=== PATIENT | female | born 1940 | race Caucasian/White ===

== ENCOUNTER → 2017-05-07 | Outpatient (REF) ==
[~2017-05-07] MED LIST: ADVAIR DISKUS1 DS1 IH; ASPI81CT10 PO; CELEBREX200 MG PO; CENTRUM SILVER1 TA1 PO; HCTZ 25MG25 MG PO; NITROSTAT0.4 MG SL; OXYBUTYNIN5 MG PO; PREVACID 30MG30 MG PO; PRINIVIL10 MG PO; SYNTHROID 0.10.15 MG PO
== END ==
LOC: ZLAB.WCH 18:15
DX: Z01.89 Encounter for other specified special examinations (principal)

== ENCOUNTER → 2018-01-18 | Outpatient (CLI) | payer MEDICARE, BC | LOC: COL.RAD 12:49 | DX: M79.671 Pain in right foot (principal) | CPT/HCPCS: J3301; Q9967 ==

== ENCOUNTER → 2018-05-13 | Outpatient (REF) | LOC: ZLAB.WCH 18:07 | DX: Z01.89 Encounter for other specified special examinations (principal) ==

== ENCOUNTER → 2018-08-05 | Outpatient (REF) | LOC: ZLAB.WCH 19:36 | DX: Z01.89 Encounter for other specified special examinations (principal) ==

== ENCOUNTER → 2018-08-16 | Outpatient (REF) ==
[2018-08-16 18:42] LABS: THYROID STIMULATING HORMONE < 0.015 uIU/mL (0.465-4.680)
== END ==
LOC: ZLAB.WCH 17:57
PROVIDERS: Nurse Practitioner Family
DX: Z01.89 Encounter for other specified special examinations (principal)

== ENCOUNTER → 2021-04-02 | Outpatient (REF) | LOC: COL.CARD 08:09 | DX: Z01.810 Encounter for preprocedural cardiovascular examination (principal) ==

== ENCOUNTER 2021-08-19 15:27 | Observation (INO) | payer MEDICARE, BC ==
[~2021-08-19 15:27] MED LIST changes: -PRINIVIL10 MG PO; +PRINIVIL5 MG PO
[2021-08-19] MEDS ORDERED: SYNTHROID0.125 MG/T PO (16:44)
[2021-08-19 16:45] VITALS: BP 177/97; PULSE 66
[2021-08-19] MEDS ORDERED: ULTRAM 50MG TAB50 MG PO (16:48)
[2021-08-19] MEDS ORDERED: VITAMINC500CH PO (16:52)
[2021-08-19] MEDS ORDERED: VITAMIN D31000 I1 PO (16:53)
[2021-08-19] MEDS ORDERED: VITAMIN E 400 U4001 PO (16:54)
[2021-08-19] MEDS ORDERED: HARD NAILS 2.51 CAP PO (16:55)
[2021-08-19] MEDS ORDERED: BIOTIN10000 MC1 PO (16:56)
[2021-08-19 18:35] VITALS: BP 186/66; PULSE 67; TEMP 97.7
[2021-08-19 20:00] VITALS: BP 125/59; PULSE 57; TEMP 98.4
[2021-08-20 00:09] VITALS: BP 122/60; PULSE 60; TEMP 98.5
[2021-08-20 03:35] VITALS: BP 112/47; PULSE 71; TEMP 98.2
[2021-08-20 06:47] LABS: BASO # 0.1 K/mm3 (0.0-0.2); BASO % 1.4 % (0.0-2.0); EOS # 0.2 K/mm3 (0.0-0.7); EOS % 4.1 % (0.0-4.0); GRAN # 3.2 K/mm3 (1.4-6.5); GRAN % 54.8 % (42.2-75.2); HEMATOCRIT 42.2 % (37.0-47.0); HEMOGLOBIN 13.7 g/dl (12.5-16.0); LYMPH # 1.8 K/mm3 (1.2-3.4); MEAN CELL VOLUME 100 fl (80.0-100.0); MEAN CORPUSCULAR HEMOGLOBIN 32 pg (27-31); MEAN CORPUSCULAR HGB CONC 33 g/dl (33.0-37.0); MEAN PLATELET VOLUME 10.4 fl (7.4-10.4); MONO # 0.6 K/mm3 (0.1-0.6); MONO % 9.4 % (1.7-9.3); PLATELET COUNT 236 K/mm3 (130-400); RED BLOOD COUNT 4.23 M/mm3 (4.10-5.30); REDCELL DISTRIBUTION WIDTH-CV 12.7 % (11.5-14.5)
[2021-08-20 07:15] LABS: ALBUMIN 3.4 gm/dL (3.4-4.8); CALCIUM 8.6 mg/dL (8.4-10.2); CREATININE, serum 0.73 mg/dL (0.57-1.11); MAGNESIUM 1.9 mg/dL (1.6-2.6); POTASSIUM 4.5 mmol/L (3.5-4.5)
[2021-08-20 07:58] VITALS: BP 138/60; PULSE 81; TEMP 97.5
--- NOTE | 2021-08-20 08:53 | NUR ---
Assessment completed, alert/oriented, vital signs stable, reports headache is still moderate to severe, Tylenol given at this time, she had her MRI brain this morning, troponin still slightly elevated but trending down, heart RRR/distal pulses are palapble, lungs CTA/ no resp.difficulty, she is sitting at the edge of bed, breakfast arrived and she has taken her morning meds, konstantin continue to monitor
[2021-08-20] MEDS ORDERED: ASPIRIN 81M81 MG/TA2 PO (09:10)
[2021-08-20] MEDS ORDERED: ULTRAM 50MG TAB50 MG PO (09:11)
--- NOTE | 2021-08-20 09:21 | NUR ---
SW met with the patient to discuss discharge plan. The patient lives in [place] with her , José Miguel ([id number]#[phone]). She reports independence with ADLs and has a cane and walker, available if needed. The patient's PCP is Dr. Josse Tafoya and she receives her medications from [place] [facility]. She reports no difficulties obtaining her meds. The patient does not have a DPOA-HC in EMR, but she states that she does have one completed and that it designates her . The patient plans on returning home with her upon discharge today. No additional needs at this time. *Discharge plan: home with *
--- NOTE | 2021-08-20 10:53 | NUR ---
Initial visit; Patient thanked [employer] Property Appraiser for stopping, offering God's blessings and leaving her card.
--- NOTE | 2021-08-20 13:58 | NUR ---
Discharge instructions reveiwed with the patient and her grandaughter, isntructed to follow up with PCP/Card/neuro as scheduled, instructed to take meds as prescribed, IV and tele removed, leaving with daughter, ambulatory and DRAGGER OUT escorted out the door
== END 2021-08-20 13:59 | disposition home or self-care (01) ==
LOC: MEDICAL 15:27 → SURG 16:41
PROVIDERS: ADMIT Internal Medicine
DX: R51.9 Headache, unspecified (principal); I16.0 Hypertensive urgency; I10 Essential (primary) hypertension; E89.0 Postprocedural hypothyroidism; R79.89 Other specified abnormal findings of blood chemistry; Z79.890 Hormone replacement therapy; Z79.82 Long term (current) use of aspirin; Z80.8 Family history of malignant neoplasm of other organs or systems
CPT/HCPCS: A9585; G0378; J1200; J2765

== ENCOUNTER → 2021-09-24 | Outpatient (CLI) | payer MEDICARE, BC ==
[~2021-09-24] MED LIST changes: +ASPIRIN 81M81 MG/TA2 PO; +BIOTIN10000 MC1 PO; +HARD NAILS 2.51 CAP PO; +SYNTHROID0.125 MG/T PO; +ULTRAM 50MG TAB50 MG PO; +VITAMIN D31000 I1 PO; +VITAMIN E 400 U4001 PO; +VITAMINC500CH PO
== END ==
LOC: COL.RAD 08:44
DX: M79.604 Pain in right leg (principal)
CPT/HCPCS: J3301